=== PATIENT | female | born 1965 | race Caucasian/White ===

== ENCOUNTER → 2017-02-24 | Outpatient (CLI) | payer OTHER ==
[~2017-02-24] VITALS: Ht 149.9 cm; Wt 85.7 kg
[~2017-02-24] MED LIST: BUSPAR15 MG PO; BUSPIRONE HCL15 MG PO; Buspar PO; CYMBALTA30 MG PO; CYMBALTA60 MG PO; GABAPENTIN800 MG PO; INDERAL20 MG PO; INDERAL40 MG PO; KLONOPIN0.5 M1 PO; KlonoPIN PO; Motrin PO; NEURONTIN400 M1 PO; NEURONTIN800 MG PO; PAROXETINE HCL10 MG PO; PAXIL CR25 MG PO; PAXIL10 MG PO; PROPRANOLOL HCL20 MG PO; Percocet 5/325,Endoc PO; SEROQUEL50 MG PO
== END | disposition home or self-care (01) ==
LOC: AMB 10:00
PROC: 0DBL8ZX Excision of Transverse Colon, Via Natural or Artificial Opening Endoscopic, Diagnostic (ICD-10-PCS; principal; 2017-02-24)
DX: Z12.11 Encounter for screening for malignant neoplasm of colon (principal); D12.3 Benign neoplasm of transverse colon; F41.8 Other specified anxiety disorders; E66.9 Obesity, unspecified; Z68.38 Body mass index [BMI] 38.0-38.9, adult; Z83.3 Family history of diabetes mellitus; Z82.49 Family history of ischemic heart disease and other diseases of the circulatory system; Z82.5 Family history of asthma and other chronic lower respiratory diseases
CPT/HCPCS: 88305; J2250